=== PATIENT | female | born 1935 | race Caucasian/White ===

== ENCOUNTER 2018-03-03 10:00 | Outpatient (CLI) | payer MEDICARE, BC ==
--- NOTE | 2018-03-03 11:47 | MRI ---
BRAIN MRI WITHOUT CONTRAST: History: Memory difficulties. Stroke one year ago. Comparison: 04-05-16 Technique: Brain MRI is performed without intravenous gadolinium administration. Multisequential, mul tiplanar imaging performed. FINDINGS: No hemorrhage on the axial gradient echo sequence. Calvarium has a normal T1 marrow signal intensity. Midline brain parenchymal structures are unremarka ble. Stable mild fullness of the pituitary gland, greater than expected for patient's age. No appreci able change when compared to the prior exam. 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 There are T2 and FLAIR white matter hyperintensities due to chronic small vessel ischemic changes. Ma lacic and gliotic changes are identified in the left occipital lobe, compatible with previous insult. Stable hyperintensity on the axial T2 and FLAIR sequence involving both internal capsules. Stable T2 and FLAIR white matter hyperintensities involve the left frontal extraaxial space. Central arterial flow voids are maintained. Absent restricted diffusion. Adequate aeration of the sinuses and mastoid air cells. IMPRESSION: 1. No acute intracranial process. 2. Stable malacic changes involving the left occipital lobe. 3. Stable extraaxial mass along the left frontal convexity, likely representing meningiomas. 4. Chronic small vessel ischemic changes of the white matter. POS: [facility]
== END 2018-03-03 10:01 | disposition home or self-care (01) ==
LOC: TBSIIMAG 10:00
PROVIDERS: ATTEND Psychiatry & Neurology Neurology
DX: R41.3 Other amnesia (principal); G93.9 Disorder of brain, unspecified
CPT/HCPCS: 70551

== ENCOUNTER 2018-09-16 08:11 | Outpatient (CLI) | payer MEDICARE, BC ==
[2018-09-16] MEDS ORDERED: Gadobenate Dimeglumine 529 MG/1 ML (20ML VIAL) ONE (11:27)
--- NOTE | 2018-09-16 12:38 | MRI ---
PRE AND POST CONTRAST ENHANCED MRI IMAGES OF THE BRAIN: History: Memory changes, R41.3, muscle spasm both lower extremities M62.838 Technique: Multiplanar, multisequence pre and post contrast enhanced MRI images were obtained of the brain. FINDINGS: There is an old area of encephalomalacia and gliosis in the left occipital lobe. This is likely due t o an old posterior cerebral distribution area of stroke. Two dural based lesions seen in the left anterior and posterior frontal lobe regions. The more anteri or lesion has 3D measurements of 9 x 5.4 x 8.5 mm while the second more posterior dural based lesion has 3D measurements of 11 x 9 x 12 mm. Both lesions have dural tails. These are compatible with menin giomas. No evidence of adjacent brain compression or edema is seen. No abnormal areas of intracranial enhancement is seen otherwise. IMPRESSION: 1. 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 2. Left frontal dural based lesion, most compatible with meningiomas. POS: [facility]
== END 2018-09-16 08:12 | disposition home or self-care (01) ==
LOC: MRI 08:11
PROVIDERS: ATTEND Nurse Practitioner Acute Care
DX: R41.3 Other amnesia (principal); M62.838 Other muscle spasm; G93.9 Disorder of brain, unspecified
CPT/HCPCS: 70553; 82565; A9579